=== PATIENT | male | born 1950 | race Caucasian/White ===

== ENCOUNTER 2018-02-19 05:10 | Emergency (ER) | payer MEDICARE, OTHER ==
[2018-02-19 05:57] LABS: #Eosinphils 0.1 thou/uL (0.0-0.7); #Lymphocytes 0.8 thou/uL (1.20-3.40); #Monocytes 0.4 thou/uL (0.11-0.59); #Neutrophils 7.2 thou/uL (1.40-6.50); %Basophils 0.4 % (0.0-1.0); %Eosinophils 1.4 % (0.0-10.0); %Lymphocytes 9.7 % (21.0-51.0); %Monocytes 4.8 % (0.0-10.0); %Neutrophils 83.7 % (42.0-75.0); Mean Corpuscular HGB CONC 33.1 g/dL (32.0-36.0); Mean Corpuscular Hemoglobin 28.8 pg (27.0-31.0); Mean Corpuscular Volume 86.9 fL (78.0-98.0); Mean Platelet Volume 8.1 fL (7.4-10.4); Platelet Count 152 thou/uL (130-400); RBC Distribution Width 14.4 % (11.5-14.5); Red Blood Cell (RBC) Count 4.88 mill/uL (4.70-6.10); White Blood Cell (WBC) Count 8.5 thou/uL (4.8-10.8)
[2018-02-19 06:15] LABS: ALT (SGPT) 22 U/L (8-55); AST (SGOT) 22 U/L (5-34); Albumin 4.3 g/dL (3.4-4.8); Alkaline Phosphatase 93 U/L (40-150); Anion Gap 15 mmol/L (10-20); BUN (Urea Nitrogen) 22 mg/dL (8.4-25.7); Bilirubin, Total 0.7 mg/dL (0.2-1.2); Calc. Creatinine Clearance 0 mL/min (70-130); Calcium 9.4 mg/dL (7.8-10.44); Carbon Dioxide 22 mmol/L (23-31); Chloride 109 mmol/L (98-107); Estimated GFR-MDRD 38; Globulin 3.7 g/dL (2.4-3.5); Glucose 205 mg/dL (80-115); Potassium 4.6 mmol/L (3.5-5.1); Sodium 141 mmol/L (136-145)
[2018-02-19 06:17] LABS: CKMB 1.2 ng/mL (0-6.6); Troponin I Less than 0.010 ng/mL (< 0.028)
[2018-02-19 06:20] LABS: Base Excess-Venous -3.3 mmol/L (0 (+/- 2.5)); Bicarbonate (HCO3v) 24.2 mmol/L (1.0-85.0); CO2 Tension (PvCO2) 51.7 mmHg (41.0-51.0); O2 Tension (PvO2) 36.5 mmHg (35.0-45.0); pH (Venous) 7.279 (7.35-7.45); vO2 Saturation-calc 61.6 % (94-98)
[2018-02-19 06:21] LABS: Calcium, Ionized 1.18 mmol/L (1.12-1.32); Potassium 4.5 mmol/L (3.4-4.7); T. Carbon Dioxide 25.8 mmol/L (1.0-85.0)
[2018-02-19] MEDS ORDERED: Cyclobenzaprine 10 MG TAB ONE (07:12)
--- NOTE | 2018-02-19 07:55 | RAD ---
PORTABLE CHEST: DATE: 02/19/2018. FINDINGS: An AP portable film at 0529 is compared with a 11/04/2013 study. The heart is mildly enlarged. There is no clear congestive change. There is some haziness over the lung bases, but this may be atelectasis, as the depth of inspiration is somewhat shallow. A cardiac pacer has been added since the prior study. There are no lobar consolidations. IMPRESSION: Mild cardiomegaly. Minimal basilar haziness. POS: HOME
[2018-02-19] MEDS ORDERED: Fentanyl 100 MCG/2 ML VIAL ONE (08:19)
--- NOTE | 2018-02-19 20:50 | CT ---
CT AORTIC DISSECTION PROTOCOL 02/19/18 A bolus of IV contrast was given and axial scanning was done in the arterial phase. CT angio of the c hest and abdomen were obtained. There is a prior history of bladder cancer. There is no evidence of aortic dissection or aneurysm. The heart is mildly enlarged. There is a trace of pericardial fluid present. No mediastinal mass or adenopathy was appreciated. The lungs show some basilar and dependent atelectasis, and possibly some mild lower lobe bronchiectasis. No large effusi ons were present. No lobar consolidations were seen. The upper abdomen showed good filling of the SMA, celiac artery, and MIRACLE. There is a relative paucity of arteriosclerotic change in the vessels. Both iliac arteries are patent. The liver, spleen, pancreas, adrenal glands all appeared normal. there is a moderate to severe degree of left hydronephrosis. One sees a stent extending from the left renal pelvis over to the right side of the abdomen to what is presumed to be the neobladder. Mild hydronephrosis is seen in the right ki dney. No renal masses were detected. The bowel shows no distention, wall thickening, or other acute changes. No free air or free fluid was seen. CT stops in the mid pelvic region. The upper pelvis was unremarkable in terms of any acute change. IMPRESSION: 1. No evidence of aortic aneurysm or dissection. 2. It is notable that the liver and spleen are somewhat generous in size but internally appear n ormal. 3. Bibasilar atelectasis. There may be a little bit of mild bronchiectasis in the lower lobes as well. 4. Minimal pericardial fluid. 5. Urinary diversion procedure noted with moderately severe left hydronephrosis and mild right h ydronephrosis. Findings discussed with Dr. Jimenes at 0711 on 02/19/18. POS: HOME
== END 2018-02-19 08:20 | disposition short-term general hospital (02) ==
LOC: BURERS 05:10
DX: R07.9 Chest pain, unspecified (principal); R06.02 Shortness of breath; Z86.718 Personal history of other venous thrombosis and embolism
CPT/HCPCS: 71045; 71275; 80053; 82330; 82553; 82803; 83880; 84484; 85025; 85379; 93005; 96361; 96374; J3010

== ENCOUNTER → 2019-01-21 | Day surgery (SDC) | payer MEDICARE, BC ==
[2019-01-21 13:11] LABS: Hemoglobin 10.4 g/dL (14.0-18.0); Mean Corpuscular HGB CONC 30.9 g/dL (32.0-36.0); Mean Corpuscular Hemoglobin 25.8 pg (27.0-31.0); Mean Corpuscular Volume 83.6 fL (78.0-98.0); Mean Platelet Volume 5.6 fL (7.4-10.4); Platelet Count 198 thou/uL (130-400); RBC Distribution Width 15.3 % (11.5-14.5); Red Blood Cell (RBC) Count 4.01 mill/uL (4.70-6.10); White Blood Cell (WBC) Count 7.4 thou/uL (4.8-10.8)
[2019-01-21 13:23] LABS: ALT (SGPT) 17 U/L (8-55); AST (SGOT) 15 U/L (5-34); Albumin 3.7 g/dL (3.4-4.8); Alkaline Phosphatase 266 U/L (40-150); Anion Gap 14 mmol/L (10-20); BUN (Urea Nitrogen) 36 mg/dL (8.4-25.7); Bilirubin, Total 0.4 mg/dL (0.2-1.2); Calc. Creatinine Clearance 0 mL/min (70-130); Calcium 9.1 mg/dL (7.8-10.44); Carbon Dioxide 19 mmol/L (23-31); Chloride 110 mmol/L (98-107); Estimated GFR-MDRD 31; Globulin 4.1 g/dL (2.4-3.5); Glucose 234 mg/dL (80-115); Potassium 4.7 mmol/L (3.5-5.1); Protein, Total 7.8 g/dL (5.8-8.1); Sodium 138 mmol/L (136-145)
[2019-01-21 13:28] VITALS: BP 118/74; TEMP 98.4
[2019-01-21 13:42] LABS: Vancomycin, Trough 10.3 ug/mL
== END ==
LOC: BUR/OP 12:28
PROVIDERS: ATTEND Internal Medicine
DX: A41.52 Sepsis due to Pseudomonas (principal); A41.1 Sepsis due to other specified staphylococcus; N10 Acute pyelonephritis
CPT/HCPCS: 80053; 80202; 85027

== ENCOUNTER → 2019-01-28 | Day surgery (SDC) | payer MEDICARE, BC ==
[2019-01-28 12:19] LABS: Hemoglobin 9.4 g/dL (14.0-18.0); Mean Corpuscular HGB CONC 30.6 g/dL (32.0-36.0); Mean Corpuscular Hemoglobin 25.4 pg (27.0-31.0); Mean Platelet Volume 5.8 fL (7.4-10.4); Platelet Count 134 thou/uL (130-400); White Blood Cell (WBC) Count 6.7 thou/uL (4.8-10.8)
[2019-01-28 12:30] LABS: Vancomycin, Trough 14.1 ug/mL
[2019-01-28 12:34] LABS: ALT (SGPT) 19 U/L (8-55); AST (SGOT) 18 U/L (5-34); Albumin 3.5 g/dL (3.4-4.8); Alkaline Phosphatase 281 U/L (40-150); Anion Gap 14 mmol/L (10-20); BUN (Urea Nitrogen) 31 mg/dL (8.4-25.7); Bilirubin, Total 0.7 mg/dL (0.2-1.2); Calc. Creatinine Clearance 0 mL/min (70-130); Calcium 9.2 mg/dL (7.8-10.44); Carbon Dioxide 21 mmol/L (23-31); Chloride 106 mmol/L (98-107); Estimated GFR-MDRD 25; Globulin 4.3 g/dL (2.4-3.5); Glucose 202 mg/dL (80-115); Potassium 4.9 mmol/L (3.5-5.1); Protein, Total 7.8 g/dL (5.8-8.1); Sodium 136 mmol/L (136-145)
[2019-01-28 12:36] VITALS: BP 124/71; TEMP 98.3
== END ==
LOC: BUR/OP 11:55
PROVIDERS: ATTEND Internal Medicine
DX: A41.52 Sepsis due to Pseudomonas (principal); A41.1 Sepsis due to other specified staphylococcus; N10 Acute pyelonephritis
CPT/HCPCS: 36415; 80053; 80202; 85027

== ENCOUNTER → 2019-02-04 | Day surgery (SDC) | payer MEDICARE, BC ==
[2019-02-04 11:43] LABS: Hemoglobin 10.2 g/dL (14.0-18.0); Mean Corpuscular HGB CONC 30.4 g/dL (32.0-36.0); Mean Corpuscular Hemoglobin 25.2 pg (27.0-31.0); Mean Platelet Volume 5.5 fL (7.4-10.4); Platelet Count 224 thou/uL (130-400); RBC Distribution Width 15.3 % (11.5-14.5); Red Blood Cell (RBC) Count 4.04 mill/uL (4.70-6.10); White Blood Cell (WBC) Count 5.2 thou/uL (4.8-10.8)
[2019-02-04 12:03] LABS: ALT (SGPT) 30 U/L (8-55); AST (SGOT) 25 U/L (5-34); Albumin 3.6 g/dL (3.4-4.8); Alkaline Phosphatase 355 U/L (40-110); Anion Gap 18 mmol/L (10-20); BUN (Urea Nitrogen) 32 mg/dL (8.4-25.7); Bilirubin, Total 0.4 mg/dL (0.2-1.2); Calc. Creatinine Clearance 0 mL/min (70-130); Calcium 9.3 mg/dL (7.8-10.44); Carbon Dioxide 16 mmol/L (23-31); Chloride 108 mmol/L (98-107); Estimated GFR-MDRD 24; Globulin 4.5 g/dL (2.4-3.5); Glucose 166 mg/dL (80-115); Potassium 4.6 mmol/L (3.5-5.1); Protein, Total 8.1 g/dL (5.8-8.1); Sodium 137 mmol/L (136-145)
[2019-02-04 12:04] VITALS: TEMP 97.8
[2019-02-04 12:06] VITALS: BP 148/81
[2019-02-04 12:17] LABS: Vancomycin, Trough 13.5 ug/mL
== END ==
LOC: BUR/OP 01-29 11:24
PROVIDERS: ATTEND Internal Medicine
DX: A41.1 Sepsis due to other specified staphylococcus (principal); A41.52 Sepsis due to Pseudomonas; N10 Acute pyelonephritis
CPT/HCPCS: 36415; 80053; 80202; 85027

== ENCOUNTER → 2019-02-11 | Day surgery (SDC) | payer MEDICARE, BC ==
[2019-02-11 09:13] LABS: ALT (SGPT) 28 U/L (8-55); AST (SGOT) 25 U/L (5-34); Albumin 3.4 g/dL (3.4-4.8); Alkaline Phosphatase 398 U/L (40-110); Anion Gap 16 mmol/L (10-20); BUN (Urea Nitrogen) 37 mg/dL (8.4-25.7); Bilirubin, Total 0.7 mg/dL (0.2-1.2); CK (CPK) 22 U/L (30-200); Calc. Creatinine Clearance 0 mL/min (70-130); Calcium 9.3 mg/dL (7.8-10.44); Carbon Dioxide 19 mmol/L (23-31); Chloride 106 mmol/L (98-107); Estimated GFR-MDRD 21; Globulin 4.6 g/dL (2.4-3.5); Glucose 175 mg/dL (80-115); Potassium 4.8 mmol/L (3.5-5.1); Sodium 136 mmol/L (136-145)
[2019-02-11 09:50] LABS: Hemoglobin 8.9 g/dL (14.0-18.0); Mean Corpuscular HGB CONC 31.4 g/dL (32.0-36.0); Mean Corpuscular Hemoglobin 24.8 pg (27.0-31.0); Mean Corpuscular Volume 78.8 fL (78.0-98.0); Mean Platelet Volume 5.5 fL (7.4-10.4); Platelet Count 245 thou/uL (130-400); RBC Distribution Width 15.2 % (11.5-14.5); Red Blood Cell (RBC) Count 3.61 mill/uL (4.70-6.10); White Blood Cell (WBC) Count 7.9 thou/uL (4.8-10.8)
[2019-02-11 11:40] VITALS: BP 115/74; TEMP 98
== END ==
LOC: BUR/OP 07:52
PROVIDERS: ATTEND Internal Medicine
DX: A41.1 Sepsis due to other specified staphylococcus (principal); A41.52 Sepsis due to Pseudomonas; N10 Acute pyelonephritis
CPT/HCPCS: 80053; 82550; 85027